=== PATIENT | male | born 1970 | race Caucasian/White ===

== ENCOUNTER 2022-07-14 10:54 | Day surgery (SDC) | payer OTHER ==
[~2022-07-14] VITALS: Ht 180.3 cm; Wt 101.6 kg
--- NOTE | ~2022-07-14 | OR ---
[facility] [address], [place] [address] Draft DATE OF OPERATION: 07/14/2022 SURGEON: Eleuterio Miranda MD PREOPERATIVE DIAGNOSIS: Left groin hematoma, status post left groin inguinal hernia repair on July 14, 2022. POSTOPERATIVE DIAGNOSIS: Subcutaneous space oozing of blood, no evidence of bleeding in the inguinal canal or area of recent arterial reconstruction. PROCEDURES: 1. Exploration of wound. 2. Evacuation of hematoma and irrigation. 3. Placement of drain. ANESTHESIA: Spinal anesthetic with IV sedation and local 5 mL of 0.25% Marcaine with epinephrine. INDICATIONS: This 52-year-old white man is a prisoner at [facility] and yesterday underwent left inguinal hernia repair. A divided spermatic artery was reconstructed by end-to-end technique with good results. He was noted by the personnel at the infirmary in the [facility] to have swelling and separation of the lateral aspect of his incision. Ecchymosis was noted as well as some scrotal ecchymosis. He was taken to the emergency room, where I evaluated him concurrently with Dr. Thomas. He had some amount of swelling and edema, but not a profound and large hematoma. Given the logistical issues at the [facility] for transfer should his symptoms worsen, I have recommended exploration of the wound, evacuation of hematoma, and control of any bleeding that may be found. The risk of bleeding, infection, and other unforeseen complications was reviewed with him, he understands and wished to proceed. FINDINGS: There was a small amount of hematoma, at most 50 mL in total. The bleeding appeared to be at William's layer, where there was ongoing oozing of blood. This was easily secured with Vicryl suture. All layers of the repair were taken down showing no sign of bleeding, where the arterial reconstruction was at the cord. Some clot in the hemiscrotum was removed as well. The wound was closed in layers with good hemostatic effect as well as use of Carola powdered hemostatic agent. PATIENT NAME: RADHA LYNCH OPERATIVE REPORT DATE OF : 70 REPORT #: [id number] PHYSICIAN: ELEUTERIO MIRANDA MD PCP: AVEL EISENBERG REPORT IS CONFIDENTIAL AND NOT TO BE RELEASED WITHOUT AUTHORIZATION [facility] [address], [place] [address] Draft DESCRIPTION OF PROCEDURE: The patient was brought to the operating room, given a spinal anesthetic, placed on having 8 hours ago. Preoperative antibiotic Ancef was given. The abdomen was prepared with a DuraPrep solution and draped sterilely. The previous incision was incised. A small amount of hematoma was noted in the subcutaneous space. The William's layer was opened by incising interrupted Vicryl suture and revealing some clot over the external oblique, which had been reapproximated, this clot was evacuated. This extended down into the hemiscrotum on the left side, this was evacuated as well. There appeared to be bleeding of small blood vessels in the region of the William's layer. This was carefully hemostats and ligated with Vicryl suture. Irrigation was undertaken, there appeared to be no ongoing bleeding. External oblique was incised removing the Vicryl suture that I closed it, revealing the underlying cord. There was a small amount of blood in this area, but not much, irrigation was undertaken. Careful inspection of the reconstructed spermatic cord artery showed good reconstruction, no sign of leakage and no sign of problem, whatsoever. The floor was without problem as well. Copious irrigation was undertaken. Carola hemostatic powder was insufflated into the area. The external oblique was reapproximated with interrupted 2-0 Vicryl. William layer was reapproximated with interrupted 2-0 Vicryl after application of Carola as well. Through a separate stab incision, a 7 mm flat Kanu drain was placed beneath the external oblique into the canal extending into the left hemiscrotum. The skin was closed with interrupted 3-0 Vicryl. Steri-Strips were applied as well as an Acticoat dressing. Blood loss in aggregate was 50 mL including the clot. Steri-Strips were applied as was an Acticoat dressing and an Opsite. The patient tolerated the procedure well and was taken to the recovery room in good condition. MD LIZZETTE Pedersen/SIRENA /[id number] cc: Avel Eisenberg [facility] Copies: PATIENT NAME: RADHA LYNCH OPERATIVE REPORT DATE OF : 70 REPORT #: [id number] PHYSICIAN: ELEUTERIO MIRANDA MD PCP: AVEL EISENBERG REPORT IS CONFIDENTIAL AND NOT TO BE RELEASED WITHOUT AUTHORIZATION [address] [address] Draft ~ PATIENT NAME: RADHA LYNCH OPERATIVE REPORT DATE OF : 70 REPORT #: [id number] PHYSICIAN: ELEUTERIO MIRANDA MD PCP: VAEL EISENBERG REPORT IS CONFIDENTIAL AND NOT TO BE RELEASED WITHOUT AUTHORIZATION
[~2022-07-14 10:54] MED LIST: ACETAMINOPHEN500 MG PO; DILTIAZEM 2% TOP; HYDROCODON-ACE1 EA10 PO; IBUPROFEN600 MG PO; METAMUCIL POW1040 GM PO; MOTRIN IB200 MG PO; NORCO 5-325 TA1 EACH PO; OXYCODONE-ACET1 EAC1 PO
[2022-07-14] MEDS ORDERED: STOOL SOFTENER250 MG PO (11:15)
--- NOTE | 2022-07-14 15:56 | NUR ---
07/14/22 1556 Gita Vila 1421 PT ARRIVED IN PACU WIDE AWAKE TALKING TO STAFF. TRANSPORT GUARD AT BEDSIDE. 1440 ANESTHESIA AT BEDSIDE TALKING TO PT ABOUT DOING A BLOCK IN L GROIN. 1450 BLOCK DONE BY ANESTHESIA. 1500 SIPPING ON WATER AND EATING PUDDING. 1512 NORCO 5/325- 2 PILLS GIVEN PO PER PT REQUEST FOR PAIN 2-08/27. 1521 TO DS. REPORT GIVEN TO RN'S. PT C/O SWOLLEN SCROTUM. TOWELS X 2 PLACED UNDERNEATH TO ELEVATE.
--- NOTE | 2022-07-14 16:12 | NUR ---
1521: PT TO DAY SURGERY ROOM 10 FROM PACU. AWAKE AND ALERT ON ARRIVAL. VSS, RESP EVEN AND UNLABORED. PAIN SALAS AT 07/30. SPINAL IN PLACE, L3. GROIN DRESSING AND DRAIN DRESSING WITH SMALL AMOUNT OF RED DRAINAGE. SALAS PO INTAKE WELL. REPORTING PRESSURE PAIN IN THE ABD. BLADDER SCANNED FOR 844ML. PT DANGLES AT THE BEDSIDE WITH ASSISTANCE. PT ABLE TO DRIBBLE 100MLS INTO URINE. TC PLACED TO MD RUTH AND ORDER RECEIVED TO STRAIGHT CATH PT. PT STRAIGHT CATHED FOR 1100MLS. REPORTS LESS DISCOMFORT. NO NEEDS VOICED. CALL LIGHT WITHIN REACH
--- NOTE | 2022-07-14 16:45 | NUR ---
PATIENT LAYING IN BED, DENIES CHANGE IN PAIN, PATIENT STATES "MY FEET STILL NUMB" AND "I DONT THINK I CAN PEE". WILL CONTINUE TO MONITOR PATIENT.
--- NOTE | 2022-07-14 17:38 | NUR ---
1650: FANY HEARD FROM THE HALLWAY, THIS RN TO THE BEDSIDE. OFFICERS HAVE PT UP TO BR AT THIS TIME. PT STEADY ON FEET AND ATTEMPTING TO VOID, UNABLE TO DO SO. BACK TO STRETCHER. C/O OF INCREASING BLADDER PRESSURE DESCRIBED PREVIOUSLY. BLADDER SCANNER TO THE BEDSIDE AND PT SCANNED FOR 988MLS. TC PLACED TO MD RUTH AND ORDER RECEIVED TO PLACE [facility] CATH AND ADMINISTER 0.4MG FLOX PO. CATH TO REMAIN IN PLACE FOR 48 HOURS, MAY HAVE LEG BAG. [facility] CATH PLACED AND 1400MLS DRAINED. SL REMOVED WITH CATH TIP INTACT AND PRESSURE APPLIED TO SITE, WNL. DRESSING REMAINS UNCHANGED FROM LAST EXAM. [facility] DRAIN AND CATH CARE ED PROVIDED. [facility] DRAINED FOR 50MLS SANGUINOUS FLUID. PT DRESSES WITH ASSISTANCE OF OFFICERS. DC INSTRUCTIONS PROVIDED AND DISCUSSED. PT WITHOUT QUESTIONS OR CONCERNS AT THIS TIME. 1732: PT WHEELED OFF OF UNIT BY OFFICERS AT THIS TIME. NO PHYSICAL S/S OF DISTRESS
--- NOTE | 2022-07-14 18:09 | NUR ---
1800: REPORT CALLED TO SHELTER AND GIVEN TO NATASHA SNELL
== END 2022-07-14 17:32 | disposition home or self-care (01) ==
LOC: ED 10:54 → DS 14:41
PROVIDERS: ATTEND Surgery
DX: S30.22XA Contusion of scrotum and testes, initial encounter (principal); X58.XXXA Exposure to other specified factors, initial encounter; K40.30 Unilateral inguinal hernia, with obstruction, without gangrene, not specified as recurrent; K62.5 Hemorrhage of anus and rectum; B19.20 Unspecified viral hepatitis C without hepatic coma; I45.6 Pre-excitation syndrome; Z98.890 Other specified postprocedural states
CPT/HCPCS: 36415; 85025; J0690; J2250; J7030